=== PATIENT | female | born 1980 | race African-American/Black ===

== ENCOUNTER 2017-04-16 12:25 | Emergency (ER) | payer OTHER ==
[~2017-04-16] VITALS: Ht 162.6 cm; Wt 179.9 kg
[2017-04-16 13:31] LABS: MCH 26.6 PG (29.0-34.0); MCHC 31.9 G/DL (30.0-36.0); MCV 83.5 FL (83-99); MEAN PLAT.VOLUME 9.8 uM^3 (9.5-12.4); PLATELET COUNT 243 K/uL (156-360); RBC DIS.WIDTH-CV 16.1 % (11.8-14.6); RBC DIS.WIDTH-SD 49.7 % (39-53); RED BLOOD COUNT 4.43 M/uL (3.80-5.20); WHITE BLOOD COUNT 4.9 K/uL (4.1-10.2)
[2017-04-16 13:44] LABS: CHLORIDE 110 mEq/L (99-109); POTASSIUM 4.3 mEq/L (3.7-5.4); SODIUM 139 mEq/L (136-147)
[2017-04-16 13:46] LABS: GLUCOSE 80 mg/dL (70-99)
[2017-04-16 13:47] LABS: ANION GAP 5 MEQ/L (2-14)
[2017-04-16 13:51] LABS: GFR ESTIMATE (CALCULATED) > 59 mL/min/; UREA NITROGEN (BUN) 21 mg/dL (9-23)
[2017-04-16 13:53] LABS: TROP-I INTERPRETATION NEGATIVE; TROPONIN-I < 0.01 ng/mL (0.0-0.30)
[2017-04-16 14:19] LABS: QUANTITATIVE HCG < 4.0 MIU/ML
[2017-04-16 16:09] LABS: TROP-I INTERPRETATION NEGATIVE; TROPONIN-I < 0.01 ng/mL (0.0-0.30)
[2017-04-16] MEDS ORDERED: XARELTO1 EACH PO (16:43)
[2017-04-16 17:24] VITALS: BP 141/101
== END 2017-04-16 17:36 | disposition home or self-care (01) ==
LOC: EME 12:25
PROVIDERS: Physician Assistant Medical
DX: I82.402 Acute embolism and thrombosis of unspecified deep veins of left lower extremity (principal); R07.9 Chest pain, unspecified; Z87.891 Personal history of nicotine dependence
CPT/HCPCS: 71020; 71275; 80048; 84484; 84702; 85027; 93005; 93971; 99281; 99285; J1885; J7030